=== PATIENT | female | born 1980 | race Caucasian/White ===

== ENCOUNTER 2021-04-05 15:44 | Emergency (ER) | payer OTHER ==
[~2021-04-05] VITALS: Ht 160 cm; Wt 54.4 kg
--- NOTE | 2021-04-05 15:50 | NUR ---
TO ER BED 3, C/O ANXIETY, BEEN TAKING STEROIDS AND ANTIBIOTIC FOR SORE THROAT, AAOX3, BREATHING EVEN AND NON LABORED
--- NOTE | 2021-04-05 16:25 | NUR ---
IV removed. Catheter intact and site benign. Pressure and 4x4 applied to site. No bleeding noted.Patient discharged to home in stable condition. Written and verbal after care instructions given. Patient verbalizes understanding of instruction.
[2021-04-05 16:26] VITALS: BP 110/58
== END 2021-04-05 16:27 | disposition home or self-care (01) ==
LOC: ER 16:00
DX: F41.0 Panic disorder [episodic paroxysmal anxiety] (principal); T50.905A Adverse effect of unspecified drugs, medicaments and biological substances, initial encounter; Z98.890 Other specified postprocedural states; Y92.89 Other specified places as the place of occurrence of the external cause